=== PATIENT | female | born 1955 | race Caucasian/White ===

== ENCOUNTER 2022-03-21 16:16 | Emergency (ER) | payer MEDICARE ==
[2022-03-21 16:26] VITALS: TEMP 98.1
[2022-03-21] MEDS ORDERED: ONDANSETRON 4 MG/2 ML VIAL IVP STA (16:43)
[2022-03-21] MEDS ORDERED: SODIUM CHLORIDE 0.9% 1,000 ML IV STA (16:43)
[2022-03-21] MEDS ORDERED: KETOROLAC 15 MG/ML 1 ML VIAL IVP STA (16:43)
--- NOTE | 2022-03-21 16:47 | ED ---
General Adult HPI - General Chief complaint: Urogenital Stated complaint: Kidney Stones Time Seen by Provider: 03/21/22 16:29 Source: patient Mode of arrival: ambulatory - History of Present Illness Initial comments: Dictation was produced using [employer] dictation software. please excuse any grammatical, word or spelling errors. Chief Complaint: 67-year-old female presents to the emergency Department with right flank pain History of Present Illness: 67-year-old feel she presents emergency Department with right-sided flank pain. She has a history of kidney stones. Patient states her symptoms have been ongoing for the last 3 days. Patient states that she has had ureteral stents placed in the past. Patient states that her symptoms are colicky nature bradycardia down to the groin area. She does report pelvic fullness. She doesn't report accompanying nausea. Patient states that her symptoms are similar to kidney stones in the past. She has not had a computed tomography scan and several years. Denies any fevers. She noticed that there was significant hematuria over the last 48 hours. The ROS documented in this emergency department record has been reviewed and confirmed by me. Those systems with pertinent positive or negative responses have been documented in the HPI. All other systems are other negative and/or noncontributory. PHYSICAL EXAM: General Impression: Alert and oriented x3, acute distress secondary to pain HEENT: Normocephalic atraumatic, extra-ocular movements intact, pupils equal and reactive to light bilaterally, mucous membranes moist. Cardiovascular: Heart regular rate and rhythm Chest: Able to complete full sentences, no retractions, no tachypnea Abdomen: abdomen soft, non-tender, non-distended, no organomegaly Musculoskeletal: Pulses present and equal in all extremities, no peripheral edema Motor: no focal deficits noted Neurological: CN II-XII grossly intact, no focal motor or sensory deficits noted Skin: Intact with no visualized rashes Psych: Normal affect and mood ED course: 67-year-old with past medical history of kidney stones presents with hematuria and right-sided flank pain. Vital Signs upon arrival are within acceptable limits. Nursing notes and chart review was performed Laboratory evaluation obtained. CBC, metabolic panel is unremarkable. Urinalysis shows 18 red blood cells and 9 white blood cells. Computed tomography scan abdomen and pelvis without contrast showed mild rectosigmoid colitis. No evidence of right renal stone or obstruction. Patient observed in emergency department for approximately 2 hours. Reevaluate bedside at 6:20 PM 5 be stable medical condition. This points unclear what is causing patient's symptoms however she does not have any high-risk features. On reevaluation she is well-appearing. Patient discharged advised to follow-up with primary care doctor. Was pt. sent in by a medical professional or institution (TERRY Palumbo, RAILWAY PATROL OFFICER, urgent care, hospital, or retirement...) When possible be specific @ -No Did you speak to anyone other than the patient for history (EMS, parent, family, police, friend...)? What history was obtained from this source @ -No Did you review nursing and triage notes (agree or disagree)? Why? @ -I reviewed and agree with nursing and triage notes Were old charts reviewed (outside hosp., previous admission, EMS record, old EKG, old radiological studies, urgent care reports/EKG's, retirement records)? Report findings @ -No old charts were reviewed Differential Diagnosis (chest pain, altered mental status, abdominal pain women, abdominal pain men, vaginal bleeding, weakness, fever, dyspnea, syncope, headache, dizziness, GI bleed, back pain, seizure, CVA, palpatations, mental health)? @ -Differential Abdominal Pain Women: Appendicitis, Cholecystitis, diverticulosis, ischemic bowel, pancreatitis, hepatitis, UTI, gastroenteritis, AAA, incarcerated hernia, bowel obstruction, constipation, inflammatory bowel, hepatitis, peptic ulcer disease, splenic infarction, perforated viscus, vulvitis, ovarian torsion, PID, kidney stone, placenta abruption, this is not meant to be an all-inclusive list EKG interpreted by me (3pts min.). @ -As above X-rays interpreted by me (1pt min.). @ -None done CT interpreted by me (1pt min.). @ -See above U/S interpreted by me (1pt. min.). @ -None done What testing was considered but not performed or refused? (CT, X-rays, U/S, labs)? Why? @ -None What meds were considered but not given or refused? Why? @ -None Did you discuss the management of the patient with other professionals (professionals i.e. TERRY Palumbo, RAILWAY PATROL OFFICER, lab, RT, psych nurse, social science instructor, wire stretcher, teacher, ground defence officer, home health care case manager)? Give summary @ -no Was smoking cessation discussed for >3mins.? @ -No Was critical care preformed (if so, how long)? @ -No Were there social determinants of health that impacted care today? How? (Homelessness, low income, unemployed, alcoholism, drug addiction, transportation, low edu. Level, literacy, decrease access to med. care, mcc, rehab)? @ -No Was there de-escalation of care discussed even if they declined (Discuss DNR or withdrawal of care, Hospice)? DNR status @ -No What co-morbidities impacted this encounter? (DM, HTN, Smoking, COPD, CAD, Cancer, CVA, ARF, Chemo, Hep., AIDS, mental health diagnosis, sleep apnea, morbid obesity)? @ -None Was patient admitted / discharged? Hospital course, mention meds given and route, prescriptions, significant lab abnormalities, going to OR and other pertinent info. @ -See above Undiagnosed new problem with uncertain prognosis? @ -No Drug Therapy requiring intensive monitoring for toxicity (Heparin, Nitro, Insulin, Cardizem)? @ -No Were any procedures done? @ -No Diagnosis/symptom? @ -Abdominal pain, no obvious source Acute, or Chronic, or Acute on Chronic? @ -default Uncomplicated (without systemic symptoms) or Complicated (systemic symptoms)? @ -Uncomplicated Side effects of treatment? @ -No Exacerbation, Progression, or Severe Exacerbation? @ -No Poses a threat to life or bodily function? How? (Chest pain, [place], DC, pneumonia, PE, COPD, DKA, ARF, appy, cholecystitis, CVA, Diverticulitis, Homicidal, Suicidal, threat to staff... and all critical care pts) @ -No - Related Data Allergies Allergy/AdvReac Type Severity Reaction Status Date / Time adhesive tape Allergy Rash/Hives Verified 03/21/22 16:27 amoxicillin Allergy Anaphylaxis Verified 03/21/22 16:27 Iodinated Contrast Media Allergy Anaphylaxis Verified 03/21/22 16:27 Penicillins Allergy Anaphylaxis Verified 03/21/22 16:27 tetrabenazine Allergy Rash/Hives Verified 03/21/22 16:27 Review of Systems ROS Statement: Those systems with pertinent positive or pertinent negative responses have been documented in the HPI. ROS Other: All systems not noted in ROS Statement are negative. 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 History of Any Multi-Drug Resistant Organisms: None Reported Past Surgical History: Orthopedic Surgery Past Psychological History: Depression Past Alcohol Use History: None Reported Past Drug Use History: Marijuana Course Vital Signs 03/21/22 03/21/22 03/21/22 16:21 17:09 17:41 Temperature 98.1 F Pulse Rate 74 79 74 Respiratory 16 18 18 Rate Blood Pressure 151/87 156/73 156/74 O2 Sat by Pulse 97 97 98 Oximetry Medical Decision Making - Lab Data Result diagrams: 03/21/22 17:00 03/21/22 17:00 Lab Results 03/21/22 03/21/22 03/21/22 Range/Units 17:00 17:00 17:08 WBC 5.8 (3.8-10.6) k/uL RBC 4.60 (3.80-5.40) m/uL Hgb 13.7 (11.4-16.0) gm/dL Hct 40.5 (34.0-46.0) % MCV 88.0 (80.0-100.0) fL MCH 29.9 (25.0-35.0) pg MCHC 34.0 (31.0-37.0) g/dL RDW 14.0 (11.5-15.5) % Plt Count 177 (150-450) k/uL MPV 7.0 Neutrophils % 61 % Lymphocytes % 28 % Monocytes % 5 % Eosinophils % 6 % Basophils % 0 % Neutrophils # 3.5 (1.3-7.7) k/uL Lymphocytes # 1.6 (1.0-4.8) k/uL Monocytes # 0.3 (0-1.0) k/uL Eosinophils # 0.3 (0-0.7) k/uL Basophils # 0.0 (0-0.2) k/uL Sodium 138 (137-145) mmol/L Potassium 3.8 (3.5-5.1) mmol/L Chloride 106 (98-107) mmol/L Carbon Dioxide 29 (22-30) mmol/L Anion Gap 3 mmol/L BUN 10 (7-17) mg/dL Creatinine 0.64 (0.52-1.04) mg/dL Est GFR (CKD-EPI)AfAm >90 (>60 ml/min/1.73 sqM) Est GFR (CKD-EPI)NonAf >90 (>60 ml/min/1.73 sqM) Glucose 139 H (74-99) mg/dL Calcium 8.3 L (8.4-10.2) mg/dL Urine Color Yellow Urine Appearance Cloudy H (Clear) Urine pH 5.5 (5.0-8.0) Ur Specific [place] 1.023 (1.001-1.035) Urine Protein Trace H (Negative) Urine Glucose (UA) Negative (Negative) Urine Ketones Negative (Negative) Urine Blood Large H (Negative) Urine Nitrite Negative (Negative) Urine Bilirubin Negative (Negative) Urine Urobilinogen 2.0 (<2.0) mg/dL Ur Leukocyte Esterase Small H (Negative) Urine RBC 18 H (0-5) /hpf Urine WBC 9 H (0-5) /hpf Ur Squamous Epith Cells 5 H (0-4) /hpf Hyaline Casts 1 (0-2) /lpf Urine Mucus Few H (None) /hpf Disposition Clinical Impression: Abdominal pain Disposition: HOME SELF-CARE Condition: Good Instructions (If sedation given, give patient instructions): Abdominal Pain (ED) Is patient prescribed a controlled substance at d/c from ED?: No Referrals: None,Stated [Primary Care Provider] - 1-2 days Time of Disposition: 18:21
[2022-03-21 17:06] LABS: Basophils % (A) 0 %; Eosinophils # (A) 0.3 k/uL (0-0.7); Eosinophils % (A) 6 %; HCT 40.5 % (34.0-46.0); HGB 13.7 gm/dL (11.4-16.0); Lymphocytes # (A) 1.6 k/uL (1.0-4.8); Lymphocytes % (A) 28 %; MCH 29.9 pg (25.0-35.0); Monocytes # (A) 0.3 k/uL (0-1.0); Monocytes % (A) 5 %; Neutrophils # (A) 3.5 k/uL (1.3-7.7); Neutrophils % (A) 61 %; Platelet Count 177 k/uL (150-450); WBC 5.8 k/uL (3.8-10.6)
[2022-03-21 17:09] VITALS: RESP 18
[2022-03-21 17:20] LABS: African American GFR (CKD) >90 (>60 ml/min/1.73 sqM); Anion Gap 3 mmol/L; Blood Urea Nitrogen 10 mg/dL (7-17); Calcium 8.3 mg/dL (8.4-10.2); Carbon Dioxide 29 mmol/L (22-30); Chloride 106 mmol/L (98-107); Glucose 139 mg/dL (74-99); Non-African American GFR(CKD) >90 (>60 ml/min/1.73 sqM); Potassium 3.8 mmol/L (3.5-5.1); Sodium 138 mmol/L (137-145)
[2022-03-21 17:31] LABS: Appearance,Urine Cloudy (Clear); Bilirubin,Urine Negative (Negative); Blood,Urine Large (Negative); Color,Urine Yellow; Glucose,Urine (UA) Negative (Negative); Hyaline Casts,Urine 1 /lpf (0-2); Ketones,Urine Negative (Negative); Leukocyte Esterase,Urine Small (Negative); Mucus,Urine Few /hpf; Nitrite,Urine Negative (Negative); PH, Urine 5.5 (5.0-8.0); Protein,Urine Trace (Negative); RBC,Urine 18 /hpf (0-5); Specific Gravity,Urine 1.023 (1.001-1.035); Squamous Epithelial Cell,Urine 5 /hpf (0-4); WBC,Urine 9 /hpf (0-5)
[2022-03-21] MEDS ORDERED: MORPHINE SULFATE 4 MG/ML SYRINGE IV STA (17:31)
[2022-03-21 17:42] VITALS: BP 156/74; PULSE 74
--- NOTE | 2022-03-21 17:54 | CT ---
EXAMINATION TYPE: CT abdomen pelvis wo con DATE OF EXAM: 03/21/2022 COMPARISON: None HISTORY: right flank pain CT DLP: 981.3 mGycm Automated exposure control for dose reduction was used. There is subsegmental atelectasis at the lung bases. Heart size is normal. No pericardial effusion. T here are clips from cholecystectomy. Liver and spleen are intact. There is previous gastric surgery. No evidence of pancreatic mass. There is no adrenal mass. Kidneys of normal size. There are a few left renal calculi that measure up to 1.5 cm. There is no retroperitoneal adenopathy. The ureters are not dilated. Urinary bladder is al most empty. No pelvic mass. No inguinal hernia. No free fluid in the pelvis. There is some mild wall thickening of the sigmoid colon. Appendix appears normal. There is no mesenteric edema. No ascites or free air. No sign of a bowel obstruction. There is normal alignment of the vertebra. No compression fracture. There is posterior fusion surgery at L3-4. The bony pelvis is intact. The hip joints are intact. There is multilevel lumbar laminectom y defect. IMPRESSION: Minimal wall thickening of the rectosigmoid colon could be some mild nonspecific colitis. Normal appe ndix. Multiple nonobstructing left renal calculi. No evidence of right renal stone or obstruction.
== END 2022-03-21 18:34 | disposition home or self-care (01) ==
LOC: EC 16:16
DX: R10.9 Unspecified abdominal pain (principal); N20.0 Calculus of kidney; F12.90 Cannabis use, unspecified, uncomplicated; Z88.0 Allergy status to penicillin; Z91.041 Radiographic dye allergy status; Z91.048 Other nonmedicinal substance allergy status; Z88.8 Allergy status to other drugs, medicaments and biological substances
CPT/HCPCS: 99284 ×2; 96374 ×2; 96375 ×3; 96361 ×2; 36415; 80048; 85025; 81001; 74176; J2270; J2405; J1885

== ENCOUNTER → 2022-05-25 | Outpatient (CLI) | payer MEDICARE ==
--- NOTE | 2022-05-25 15:24 | MR ---
EXAMINATION TYPE: MR shoulder LT wo con DATE OF EXAM: 05/25/2022 COMPARISON: Left shoulder x-ray April 24, 2022 HISTORY: Left shoulder pain, S/P fall 1 month ago. TECHNIQUE: Multiplanar, multisequence imaging of the left shoulder is performed without contrast. FINDINGS: Rotator Cuff: Some increased signal and surrounding fluid of the supraspinatus and infraspinatus tend ons. Some fluid signal along the bursal surface. No full-thickness retracted tear. Rotator cuff muscl e bulk is preserved. Increased signal is more prominent in the subscapularis tendon with surrounding fluid Acromioclavicular Joint: Mild to moderate narrowing at the acromioclavicular joint. Type II downslopi ng acromion on MRI suggestive of underlying impingement sagittal image 9 and coronal image 10 Glenohumeral Joint: Significant narrowing with bony exostosis medially from the humeral head. Moderat e-sized joint effusion. Labrum: Increased signal superior labrum consistent with degenerative tearing. Biceps Tendon: The long head of biceps is in normal location within bicipital groove. Bone marrow signal: Subchondral cystic change anterior humeral head is present. Other: No additional significant abnormality is appreciated. IMPRESSION: 1. Fairly moderate to severe glenohumeral joint arthropathy is seen as detailed above. 2. Tendinosis of the rotator cuff tendons most prominent involving the subscapularis tendon. Type II downsloping acromion with suggestion of underlying impingement. Correlate clinically.
== END | disposition home or self-care (01) ==
LOC: RADMRIMAIN 07:19
PROVIDERS: ATTEND Family Medicine
DX: M19.012 Primary osteoarthritis, left shoulder (principal); M24.812 Other specific joint derangements of left shoulder, not elsewhere classified; M67.814 Other specified disorders of tendon, left shoulder

== ENCOUNTER → 2022-08-06 | Outpatient (CLI) | payer MEDICARE ==
--- NOTE | 2022-08-07 12:38 | CA ---
Transthoracic Echo Report Name: Maryellen Hernandez Age: 67 Gender: F : 1955 Exam Date: 08/06/2022 10:01 Exam Location: [facility] Ht (in): 67 Wt (lb): 191 Ordering Physician: Javon Wallace MD Attending/Referring Phys: [id number], Rodrigo Art Appraiser Josie Hendrickson, AMAURY Procedure CPT: Indications: I25.2 OLD MYOCARDIAL INFARCTION Abn EKG Cardiac Hx: Technical Quality: Good Contrast 1: Total Dose (mL): Contrast 2: Total Dose (mL): MEASUREMENTS (Male / Female) Normal Values 2D ECHO LV Diastolic Diameter PLAX 4.4 cm 4.2 - 5.9 / 3.9 - 5.3 cm LV Systolic Diameter PLAX 2.9 cm IVS Diastolic Thickness 1.2 cm 0.6 - 1.0 / 0.6 - 0.9 cm LVPW Diastolic Thickness 1.1 cm 0.6 - 1.0 / 0.6 - 0.9 cm LV Relative Wall Thickness 0.5 RV Internal Dim ED PLAX 2.8 cm LA Systolic Diameter LX 3.9 cm 3.0 - 4.0 / 2.7 - 3.8 cm LV Diastolic Volume MOD BP 52.0 cm??? 67 - 155 / 56 - 104 cm??? LV Systolic Volume MOD BP 17.7 cm??? 22 - 58 / 19 - 49 cm??? LV Ejection Fraction MOD BP 66.0 % >= 55 % LV Diastolic Volume MOD 4C 46.6 cm??? LV Systolic Volume MOD 4C 16.1 cm??? LV Ejection Fraction MOD 4C 65.4 % LV Diastolic Length 4C 6.6 cm LV Systolic Length 4C 5.5 cm LV Diastolic Volume MOD 2C 58.4 cm??? LV Systolic Volume MOD 2C 19.2 cm??? LV Ejection Fraction MOD 2C 67.1 % LV Diastolic Length 2C 6.7 cm LV Systolic Length 2C 5.2 cm LA Volume 50.0 cm??? 18 - 58 / 22 - 52 cm??? M-MODE Aortic Root Diameter MM 3.0 cm MV E Point Septal Separation 0.4 cm AV Cusp Separation MM 1.9 cm DOPPLER AV Peak Velocity 147.7 cm/s AV Peak Gradient 8.7 mmHg AI Peak Velocity 267.7 cm/s AI Peak Gradient 28.7 mmHg AI Pressure Half Time 902.6 ms MV Area PHT 2.4 cm??? Mitral E Point Velocity 69.2 cm/s Mitral A Point Velocity 97.0 cm/s Mitral E to A Ratio 0.7 MV Deceleration Time 321.3 ms MV E' Velocity 9.9 cm/s Mitral E to MV E' Ratio 7.0 TR Peak Velocity 278.6 cm/s TR Peak Gradient 31.0 mmHg Right Ventricular Systolic Press 36.0 mmHg FINDINGS Left Ventricle Left ventricular ejection fraction is estimated at 55-60 %. Left ventricular cavity size normal. Mildly increased septal wall thickness. Mildly increased posterior wall thickness. Right Ventricle Normal right ventricular size and function. Mild pulmonary hypertension. Right Atrium Normal right atrial size. Left Atrium Mildly increased left atrial diameter. Mitral Valve Structurally normal mitral valve. Trace mitral regurgitation. Aortic Valve Trileaflet aortic valve. Mild aortic regurgitation. Tricuspid Valve Structurally normal tricuspid valve. Mild tricuspid regurgitation. Pulmonic Valve Structurally normal pulmonic valve. No pulmonic regurgitation. Pericardium Normal pericardium. No pericardial effusion. Aorta Normal size aortic root and proximal ascending aorta. CONCLUSIONS Normal LV systolic function Mild aortic insufficiency Previewed by: Dr. Luciano Leonard MD (Electronically Signed) Final Date: 07 August 2022 12:38
--- NOTE | 2022-08-07 13:34 | CA ---
Stress Echo Report Maryellen Hernandez Age: 67 Gender: F : 1955 Exam Date: 08/06/2022 10:30 Exam Location: [facility] Ht (in): 67 Wt (lb): 191 Ordering Physician: Javon Wallace MD Referring Physician: Rodrigo JOHNSON Yoker Machine Operator: Yanique Zheng RDCS Technologist Procedure CPT: Indication: I25.2 OLD MYOCARDIAL INFARCTION Abn EKG ICD-9 Codes: Rhythm: Patient History: Cardiac Medications: EFFEXOR,,,,,, ALIVE,,,,, Medications in past 24 hours: Contrast: Stress Results Protocol: Rafael Total dose(mL): Exercise Duration (min:sec): 3:[address] Depression (mm): Angina Score: [place] Score: METS: 5.0 Resting HR: 88 Resting BP: 170 / 70 Peak HR: 152 Peak BP: 256 / 65 Max Predicted HR: 154 99 % Max Predicted HR Target HR: 131 Double Product: [id number] Stress Summary: The patient's target heart rate was achieved BP Response: Abnormal increase in BP during/after stress Reason for Termination: MAX EXERTION/TARGET HR Cardiac Symptoms: NO SYMPTOMS ECG Analysis Resting ECG: Stress ECG: Arrhythmia: Echo Analysis Resting Echo: Peak Echo Analysis: MEASUREMENTS (Male/Female) Normal Values CONCLUSIONS Average exercise tolerance Normal EKG and echo in the response to exercise Dr. Luciano Leonard MD (Electronically Signed) Final Date: 07 August 2022 13:33
== END | disposition home or self-care (01) ==
LOC: RADNMMAIN 09:55
PROVIDERS: ATTEND Family Medicine
DX: I35.1 Nonrheumatic aortic (valve) insufficiency (principal); I25.2 Old myocardial infarction
CPT/HCPCS: 93306; 93351

== ENCOUNTER 2023-03-05 07:38 | Emergency (ER) | payer MEDICARE ==
[2023-03-05] MEDS ORDERED: SODIUM CHLORIDE 0.9% 1,000 ML IV STA (08:08)
[2023-03-05] MEDS ORDERED: ONDANSETRON 4 MG/2 ML VIAL IVP STA (08:08)
[2023-03-05] MEDS ORDERED: HYDROmorphone 1 MG/ML 1 ML SYRINGE IVP STA (08:09)
--- NOTE | 2023-03-05 08:10 | ED ---
General Adult HPI - General Chief complaint: Abdominal Pain Stated complaint: kidney pain Time Seen by Provider: 03/05/23 07:44 Source: patient, RN notes reviewed, old records reviewed Mode of arrival: wheelchair Limitations: no limitations - History of Present Illness Initial comments: 68 yo female presenting with right-sided flank pain over the past 4 days. This is radiates to the right groin. History of renal stones in the past. Patient has had multiple episodes of vomiting associated with the pain. No fever. No dysuria. No hematuria. - Related Data Home Medications Medication Instructions Recorded Confirmed Ascorbic Acid [Vitamin C] 500 mg PO DAILY 03/21/22 03/21/22 Venlafaxine HCl ER [Effexor XR] 150 mg PO BID 03/21/22 03/21/22 Zinc Gluconate [Zinc] 50 mg PO DAILY 03/21/22 03/21/22 traZODone HCL 100 - 200 mg PO HS PRN 03/21/22 03/21/22 Allergies Allergy/AdvReac Type Severity Reaction Status Date / Time adhesive tape Allergy Rash/Hives Verified 03/05/23 07:49 amoxicillin Allergy Anaphylaxis Verified 03/05/23 07:49 Iodinated Contrast Media Allergy Anaphylaxis Verified 03/05/23 07:49 Penicillins Allergy Anaphylaxis Verified 03/05/23 07:49 phenobarbital Allergy Rash/Hives Verified 03/05/23 07:49 phenytoin [From Dilantin] Allergy Rash/Hives Verified 03/05/23 07:49 tetrabenazine Allergy Rash/Hives Verified 03/05/23 07:49 fentanyl AdvReac "Skin Verified 03/05/23 07:49 falls off" Review of Systems ROS Statement: Those systems with pertinent positive or pertinent negative responses have been documented in the HPI. ROS Other: All systems not noted in ROS Statement are negative. 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 Absent: tenderness, meningismus Respiratory exam: Present: normal lung sounds bilaterally. Absent: respiratory distress, wheezes Cardiovascular Exam: Present: regular rate, normal rhythm GI/Abdominal exam: Present: soft. Absent: distended Extremities exam: Present: normal inspection Back exam: Present: CVA tenderness (R) Neurological exam: Present: alert, oriented X3 Psychiatric exam: Present: normal affect, normal mood Skin exam: Present: warm, dry, intact Course Vital Signs 03/05/23 03/05/23 07:47 09:48 Temperature 98.5 F 97.8 F Pulse Rate 65 61 Respiratory 16 18 Rate Blood Pressure 141/62 151/74 O2 Sat by Pulse 98 96 Oximetry Medical Decision Making - Medical Decision Making Was pt. sent in by a medical professional or institution (, PA, CHAIN TENDER, urgent care, hospital, or usp...) When possible be specific @ -No Did you speak to anyone other than the patient for history (EMS, parent, family, police, friend...)? What history was obtained from this source @ -No Did you review nursing and triage notes (agree or disagree)? Why? @ -I reviewed and agree with nursing and triage notes Were old charts reviewed (outside hosp., previous admission, EMS record, old EKG, old radiological studies, urgent care reports/EKG's, usp records)? Report findings @ -No old charts were reviewed Differential Diagnosis (chest pain, altered mental status, abdominal pain women, abdominal pain men, vaginal bleeding, weakness, fever, dyspnea, syncope, headache, dizziness, GI bleed, back pain, seizure, CVA, palpatations, mental health, musculoskeletal)? @ -[Differential Abdominal Pain Women: Appendicitis, Cholecystitis, diverticulosis, ischemic bowel, pancreatitis, hep atitis, UTI, gastroenteritis, AAA, incarcerated hernia, bowel obstruction, constipation, inflammatory bowel, hepatitis, peptic ulcer disease, splenic infarction, perforated viscus, vulvitis, ovarian torsion, PID, kidney stone, placenta abruption, this is not meant to be an all-inclusive list EKG interpreted by me (3pts min.). @ -As above X-rays interpreted by me (1pt min.). @ -None done CT interpreted by me (1pt min.). @CT negative for obstructing renal calculi, no acute findings U/S interpreted by me (1pt. min.). @ -None done What testing was considered but not performed or refused? (CT, X-rays, U/S, labs)? Why? @ -None What meds were considered but not given or refused? Why? @ -None Did you discuss the management of the patient with other professionals (professionals i.e. , PA, CHAIN TENDER, lab, RT, psych nurse, certified social workers in health care, volunteer assistant, teacher, retail loan officer, bilingual case manager)? Give summary @ -No Was smoking cessation discussed for >3mins.? @ -No Was critical care preformed (if so, how long)? @ -No Were there social determinants of health that impacted care today? How? (Homelessness, low income, unemployed, alcoholism, drug addiction, transportation, low edu. Level, literacy, decrease access to med. care, penitentiary, rehab)? @ -No Was there de-escalation of care discussed even if they declined (Discuss DNR or withdrawal of care, Hospice)? DNR status @ -No What co-morbidities impacted this encounter? (DM, HTN, Smoking, COPD, CAD, Cancer, CVA, ARF, Chemo, Hep., AIDS, mental health diagnosis, sleep apnea, morbid obesity)? @ -[History of kidney stones. Was patient admitted / discharged? Hospital course, mention meds given and route, prescriptions, significant lab abnormalities, going to OR and other pertinent info. @ -68-year-old female with right flank pain over the past 4 days. Normal CBC, normal CMP, negative urinalysis, no significant hematuria. CT negative for obstructing stone or acute process. Patient does have multiple nonobstructing stones in the left kidney. Patient reevaluated, feeling better. She will follow with her primary care provider. Troponin was discussed. Undiagnosed new problem with uncertain prognosis? @ -No Drug Therapy requiring intensive monitoring for toxicity (Heparin, Nitro, Insulin, Cardizem)? @ -No Were any procedures done? @ -No Diagnosis/symptom? @ -[Right flank pain Acute, or Chronic, or Acute on Chronic? @ -[Acute Uncomplicated (without systemic symptoms) or Complicated (systemic symptoms)? @ Side effects of treatment? @ -No Exacerbation, Progression, or Severe Exacerbation? @ -No Poses a threat to life or bodily function? How? (Chest pain, [place], [place], pneumonia, PE, COPD, DKA, ARF, appy, cholecystitis, CVA, Diverticulitis, Homicidal, Suicidal, threat to staff... and all critical care pts) @ -[Low risk at this time - Lab Data Result diagrams: 03/05/23 08:11 03/05/23 08:11 Lab Results 03/05/23 03/05/23 03/05/23 Range/Units 08:11 08:11 08:11 WBC 7.1 (3.8-10.6) k/uL RBC 4.80 (3.80-5.40) m/uL Hgb 14.3 (11.4-16.0) gm/dL Hct 43.5 (34.0-46.0) % MCV 90.7 (80.0-100.0) fL MCH 29.9 (25.0-35.0) pg MCHC 32.9 (31.0-37.0) g/dL RDW 13.1 (11.5-15.5) % Plt Count 201 (150-450) k/uL MPV 6.8 Neutrophils % 59 % Lymphocytes % 30 % Monocytes % 5 % Eosinophils % 4 % Basophils % 0 % Neutrophils # 4.2 (1.3-7.7) k/uL Lymphocytes # 2.2 (1.0-4.8) k/uL Monocytes # 0.3 (0-1.0) k/uL Eosinophils # 0.3 (0-0.7) k/uL Basophils # 0.0 (0-0.2) k/uL Sodium 139 (137-145) mmol/L Potassium 4.3 (3.5-5.1) mmol/L Chloride 101 (98-107) mmol/L Carbon Dioxide 28 (22-30) mmol/L Anion Gap 10 mmol/L BUN 18 H (7-17) mg/dL Creatinine 0.69 (0.52-1.04) mg/dL Est GFR (CKD-EPI)AfAm >90 (>60 ml/min/1.73 sqM) Est GFR (CKD-EPI)NonAf >90 (>60 ml/min/1.73 sqM) Glucose 107 H (74-99) mg/dL Calcium 9.3 (8.4-10.2) mg/dL Total Bilirubin 0.5 (0.2-1.3) mg/dL AST 27 (14-36) U/L ALT 15 (4-34) U/L Alkaline Phosphatase 88 (38-126) U/L Total Protein 7.4 (6.3-8.2) g/dL Albumin 4.2 (3.5-5.0) g/dL Lipase 248 (23-300) U/L Urine Color Yellow Urine Appearance Clear (Clear) Urine pH 5.5 (5.0-8.0) Ur Specific [address] 1.021 (1.001-1.035) Urine Protein Negative (Negative) Urine Glucose (UA) Negative (Negative) Urine Ketones Negative (Negative) Urine Blood Small H (Negative) Urine Nitrite Negative (Negative) Urine Bilirubin Negative (Negative) Urine Urobilinogen <2.0 (<2.0) mg/dL Ur Leukocyte Esterase Moderate H (Negative) Urine RBC 1 (0-5) /hpf Urine WBC 13 H (0-5) /hpf Ur Squamous Epith Cells 5 H (0-4) /hpf Urine Bacteria Many H (None) /hpf Urine Mucus Occasional H (None) /hpf Disposition Clinical Impression: Abdominal pain Disposition: HOME SELF-CARE Condition: Good Instructions (If sedation given, give patient instructions): Abdominal Pain (ED) Is patient prescribed a controlled substance at d/c from ED?: No Referrals: Javon Wallace MD [Primary Care Provider] - 1-2 days Time of Disposition: 10:18
[2023-03-05 08:21] LABS: Basophils % (A) 0 %; Eosinophils # (A) 0.3 k/uL (0-0.7); Eosinophils % (A) 4 %; HCT 43.5 % (34.0-46.0); HGB 14.3 gm/dL (11.4-16.0); Lymphocytes # (A) 2.2 k/uL (1.0-4.8); Lymphocytes % (A) 30 %; MCH 29.9 pg (25.0-35.0); MCHC 32.9 g/dL (31.0-37.0); MCV 90.7 fL (80.0-100.0); Mean Platelet Volume 6.8; Monocytes # (A) 0.3 k/uL (0-1.0); Monocytes % (A) 5 %; Neutrophils # (A) 4.2 k/uL (1.3-7.7); Neutrophils % (A) 59 %; Platelet Count 201 k/uL (150-450); RDW 13.1 % (11.5-15.5); WBC 7.1 k/uL (3.8-10.6)
[2023-03-05 08:29] LABS: ALT 15 U/L (4-34); AST 27 U/L (14-36); African American GFR (CKD) >90 (>60 ml/min/1.73 sqM); Albumin 4.2 g/dL (3.5-5.0); Alkaline Phosphatase 88 U/L (38-126); Anion Gap 10 mmol/L; Blood Urea Nitrogen 18 mg/dL (7-17); Calcium 9.3 mg/dL (8.4-10.2); Carbon Dioxide 28 mmol/L (22-30); Chloride 101 mmol/L (98-107); Glucose 107 mg/dL (74-99); Lipase 248 U/L (23-300); Non-African American GFR(CKD) >90 (>60 ml/min/1.73 sqM); Potassium 4.3 mmol/L (3.5-5.1); Sodium 139 mmol/L (137-145); Total Bilirubin 0.5 mg/dL (0.2-1.3); Total Protein 7.4 g/dL (6.3-8.2)
[2023-03-05 08:44] LABS: Appearance,Urine Clear (Clear); Bacteria,Urine Many /hpf; Bilirubin,Urine Negative (Negative); Blood,Urine Small (Negative); Color,Urine Yellow; Glucose,Urine (UA) Negative (Negative); Ketones,Urine Negative (Negative); Leukocyte Esterase,Urine Moderate (Negative); Mucus,Urine Occasional /hpf; Nitrite,Urine Negative (Negative); PH, Urine 5.5 (5.0-8.0); Protein,Urine Negative (Negative); RBC,Urine 1 /hpf (0-5); Specific Gravity,Urine 1.021 (1.001-1.035); Squamous Epithelial Cell,Urine 5 /hpf (0-4); Urobilinogen,Urine <2.0 mg/dL (<2.0); WBC,Urine 13 /hpf (0-5)
--- NOTE | 2023-03-05 09:44 | CT ---
EXAMINATION TYPE: CT abdomen pelvis wo con DATE OF EXAM: 03/05/2023 HISTORY: Right flank pain. History of kidney stones. CT DLP: 652.9 mGycm. Automated Exposure Control for Dose Reduction was Utilized. TECHNIQUE: CT scan of the abdomen and pelvis is performed without oral or IV contrast. COMPARISON: Prior CT March 21, 2022 FINDINGS: Within the limitations of a non-contrast study, the following observations are made. Exam suboptimal as entire pelvis is not included. LUNG BASES: No significant abnormality is appreciated. LIVER/GB: Cholecystectomy clips are redemonstrated.. PANCREAS: No significant abnormality is seen. SPLEEN: No significant abnormality is seen. ADRENALS: No significant abnormality is seen. KIDNEYS: No right-sided renal calculi or hydronephrosis. Approximately 4-5 left-sided renal calculi c urrent study including dominant 14 mm calculus coronal image 52. No left-sided hydronephrosis. The bl adder is not included in field of view BOWEL:. Appendix within normal limits from the base of cecum. GENITAL ORGANS: Not included in field of view. LYMPH NODES: No greater than 1cm abdominal lymph nodes are appreciated. OSSEOUS STRUCTURES: Posterior decompression changes in the mid to lower lumbar spine are redemonstrat ed. Alignment is stable and straightened. Posterior fusion hardware and artificial disc material L3-L 4 level redemonstrated. Vacuum disc phenomenon with mild to moderate disc space narrowing and severe anterior spurring L2-L3 level redemonstrated. Moderate disc space narrowing and spurring L1-L2 level redemonstrated. OTHER: Persistent small fat-containing left periumbilical hernia. IMPRESSION: Interval progression in nonobstructing left-sided nephrolithiasis. No right-sided renal c alculi. No hydronephrosis or obstructing ureteral calculi seen bilaterally. Incomplete evaluation of the pelvis noted.
[2023-03-05 09:55] VITALS: BP 151/74; PULSE 61; RESP 18; TEMP 97.8
== END 2023-03-05 10:32 | disposition home or self-care (01) ==
LOC: EC 07:38
DX: N20.0 Calculus of kidney (principal); F32.A Depression, unspecified; F12.90 Cannabis use, unspecified, uncomplicated; Z79.899 Other long term (current) drug therapy; Z88.0 Allergy status to penicillin; Z91.041 Radiographic dye allergy status; Z91.09 Other allergy status, other than to drugs and biological substances; Z88.8 Allergy status to other drugs, medicaments and biological substances; Z88.5 Allergy status to narcotic agent
CPT/HCPCS: 36415; 80053; 83690; 85025; 81001; 74176; 99284; 96374; 96375; 96361; J2405; J1170

== ENCOUNTER 2023-03-08 11:34 | Emergency (ER) | payer MEDICARE ==
--- NOTE | 2023-03-08 12:14 | ED ---
Abdominal Pain HPI - General Source: patient, RN notes reviewed Mode of arrival: ambulatory Limitations: no limitations - History of Present Illness MD Complaint: flank pain <Nuria Ludwig - Last Filed: 03/08/23 12:09> <Papa Michaels - Last Filed: 03/08/23 17:45> - General Chief Complaint: Abdominal Pain Stated Complaint: kidney stones Time Seen by Provider: 03/08/23 12:00 - History of Present Illness Initial Comments: This is a 68 year old female who presents to the emergency department for right flank pain. Patient was evaluated here on 03/05 and states that she was diagnosed with kidney stones. She continues to be in severe pain and states that she cannot manage this at home. She called the urologist who said that they could not do anything in a timely manor. (Nuria Ludwig) This is a 68-year-old female who presented emergency Department complaining of left-sided flank pain. Patient states that is been ongoing for 2 weeks. Gurwinder t states she was in the ER the other day and they noted that she had a 14 mm stone in the left kidney and she believes that's where her pain is coming from. Patient states she does have pain on both sides of her abdomen. Patient does complain of pain up into her kidney area as well. Patient also has some pain in the suprapubic region. Patient states she's unable to urinate a lot every time she goes only goes a little bit. Patient denies any fever chills per patient denies any diarrhea patient denies any nausea vomiting. Patient states the pain is unbearable at this point (Papa Michaels) - Related Data Home Medications Medication Instructions Recorded Confirmed Venlafaxine HCl ER [Effexor XR] 300 mg PO DAILY 03/21/22 03/08/23 HYDROcodone/APAP 5-325MG [[place] 1 tab PO DIRECTED PRN 03/08/23 03/08/23 5-325] Ondansetron Odt [Zofran Odt] 4 mg PO DIRECTED PRN 03/08/23 03/08/23 Tamsulosin [Flomax] 0.4 mg PO DIRECTED 03/08/23 03/08/23 Allergies Allergy/AdvReac Type Severity Reaction Status Date / Time adhesive tape Allergy Rash/Hives Verified 03/08/23 13:30 amoxicillin Allergy Anaphylaxis Verified 03/08/23 13:30 Iodinated Contrast Media Allergy Anaphylaxis Verified 03/08/23 13:30 Penicillins Allergy Anaphylaxis Verified 03/08/23 13:30 phenobarbital Allergy Rash/Hives Verified 03/08/23 13:30 phenytoin [From Dilantin] Allergy Rash/Hives Verified 03/08/23 13:30 tetrabenazine Allergy Rash/Hives Verified 03/08/23 13:30 fentanyl AdvReac "Skin Verified 03/08/23 13:30 falls off" Review of Systems ROS Other: All systems not noted in ROS Statement are negative. <Nuria Ludwig - Last Filed: 03/08/23 12:09> ROS Other: All systems not noted in ROS Statement are negative. <Papa Michaels - Last Filed: 03/08/23 17:45> ROS Statement: Those systems with pertinent positive or pertinent negative responses have been documented in the HPI. 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 Head: Normocephalic, atraumatic Eyes: PERRLA, EOMI ENT: Airway patent Chest: Nonlabored breathing Skin: No visual rash, normal skin tone Neuro: Alert and oriented 3 Musculoskeletal: No gross abnormalities (Nuria Ludwig) GENERAL: Patient is well-developed and well-nourished. Patient is nontoxic and well- hydrated and is in mild distress. ENT: Neck is soft and supple. No significant lymphadenopathy is noted. Oropharynx is clear. Moist mucous membranes. Neck has full range of motion without eliciting any pain. EYES: The sclera were anicteric and conjunctiva were pink and moist. Extraocular movements were intact and pupils were equal round and reactive to light. Eyelids were unremarkable. PULMONARY: Unlabored respirations. Good breath sounds bilaterally. No audible rales rhonchi or wheezing was noted. CARDIOVASCULAR: There is a regular rate and rhythm without any murmurs gallops or rubs. ABDOMEN: Soft and nontender with normal bowel sounds. SKIN: Skin is clear with no lesions or rashes and otherwise unremarkable. NEUROLOGIC: Patient is alert and oriented 3 cranial nerves II through XII are grossly intact motor and sensory are also intact MUSCULOSKELETAL: Normal extremities with adequate strength and full range of motion. No lower extremity swelling or edema. No calf tenderness. LYMPHATICS: No significant lymphadenopathy is noted PSYCHIATRIC: Normal psychiatric evaluation. (Papa Michaels) Course Vital Signs 03/08/23 03/08/23 03/08/23 12:01 13:44 15:23 Temperature 98 F Pulse Rate 76 77 63 Respiratory 16 18 16 Rate Blood Pressure 155/81 181/102 180/89 O2 Sat by Pulse 97 96 99 Oximetry 03/08/23 16:46 Temperature Pulse Rate 74 Respiratory 18 Rate Blood Pressure 180/95 O2 Sat by Pulse 97 Oximetry Medical Decision Making <Nuria Ludwig - Last Filed: 03/08/23 12:09> - Lab Data Result diagrams: 03/08/23 13:36 03/08/23 13:36 <Papa Michaels - Last Filed: 03/08/23 17:45> - Medical Decision Making I performed the QuickNote portion of this chart. Signed Nuria Ludwig PA-C. (Nuria Ludwig) Was pt. sent in by a medical professional or institution (TER[facility] Palumbo, MANAGER PRACTICE, urgent care, hospital, or half-way...) When possible be specific @ -No Did you speak to anyone other than the patient for history (EMS, parent, family, police, friend...)? What history was obtained from this source @ -No Did you review nursing and triage notes (agree or disagree)? Why? @ -I reviewed and agree with nursing and triage notes Were old charts reviewed (outside hosp., previous admission, EMS record, old EKG, old radiological studies, urgent care reports/EKG's, half-way records)? Report findings @ -The prior chart some lab work on this patient Differential Diagnosis (chest pain, altered mental status, abdominal pain women, abdominal pain men, vaginal bleeding, weakness, fever, dyspnea, syncope, headache, dizziness, GI bleed, back pain, seizure, CVA, palpatations, mental health, musculoskeletal)? @ -Differential Abdominal Pain Women: Appendicitis, Cholecystitis, diverticulosis, ischemic bowel, pancreatitis, hepatitis, UTI, gastroenteritis, AAA, incarcerated hernia, bowel obstruction, constipation, inflammatory bowel, hepatitis, peptic ulcer disease, splenic infarction, perforated viscus, vulvitis, ovarian torsion, PID, kidney stone, placenta abruption, this is not meant to be an all-inclusive list EKG interpreted by me (3pts min.). @ -As above X-rays interpreted by me (1pt min.). @ -None done CT interpreted by me (1pt min.). @ -CT of the abdomen and pelvis showed no acute abnormality there is a kidney stone in the left kidney but it is not showing any hydronephrosis or hydroureter U/S interpreted by me (1pt. min.). @ -None done What testing was considered but not performed or refused? (CT, X-rays, U/S, labs)? Why? @ -None What meds were considered but not given or refused? Why? @ -None Did you discuss the management of the patient with other professionals (professionals i.e. , PA, MANAGER PRACTICE, lab, RT, psych nurse, social media marketing analyst, ledger poster, teacher, family preservation officer, embedded case manager)? Give summary @ -No Was smoking cessation discussed for >3mins.? @ -No Was critical care preformed (if so, how long)? @ -No Were there social determinants of health that impacted care today? How? (Homelessness, low income, unemployed, alcoholism, drug addiction, tr ansportation, low edu. Level, literacy, decrease access to med. care, alf, rehab)? @ -No Was there de-escalation of care discussed even if they declined (Discuss DNR or withdrawal of care, Hospice)? DNR status @ -No What co-morbidities impacted this encounter? (DM, HTN, Smoking, COPD, CAD, Cancer, CVA, ARF, Chemo, Hep., AIDS, mental health diagnosis, sleep apnea, morbid obesity)? @ -None Was patient admitted / discharged? Hospital course, mention meds given and route, prescriptions, significant lab abnormalities, going to OR and other pertinent info. @ -The patient was given Toradol and Dilaudid for pain and feeling considerably better. Patient's CT showed no acute abnormality and fell no expiration for pain. I went into the room multiple times and she was sleeping when I woke her up she was in no discomfort so at this time she'll follow-up with her primary medical care doctor. Undiagnosed new problem with uncertain prognosis? @ -No Drug Therapy requiring intensive monitoring for toxicity (Heparin, Nitro, Insulin, Cardizem)? @ -No Were any procedures done? @ -No Diagnosis/symptom? @ -Abdominal pain Acute, or Chronic, or Acute on Chronic? @ -Acute Uncomplicated (without systemic symptoms) or Complicated (systemic symptoms)? @ -Complicated Side effects of treatment? @ -No Exacerbation, Progression, or Severe Exacerbation? @ -No Poses a threat to life or bodily function? How? (Chest pain, [place], [place], pneumonia, PE, COPD, DKA, ARF, appy, cholecystitis, CVA, Diverticulitis, Homicidal, Suicidal, threat to staff... and all critical care pts) @ -No (Papa Michaels) - Lab Data Lab Results 03/08/23 03/08/23 03/08/23 Range/Units 13:36 13:36 13:36 WBC 7.0 (3.8-10.6) k/uL RBC 4.74 (3.80-5.40) m/uL Hgb 14.4 (11.4-16.0) gm/dL Hct 42.9 (34.0-46.0) % MCV 90.4 (80.0-100.0) fL MCH 30.3 (25.0-35.0) pg MCHC 33.5 (31.0-37.0) g/dL RDW 13.4 (11.5-15.5) % Plt Count 212 (150-450) k/uL MPV 6.9 Neutrophils % 60 % Lymphocytes % 29 % Monocytes % 6 % Eosinophils % 3 % Basophils % 0 % Neutrophils # 4.2 (1.3-7.7) k/uL Lymphocytes # 2.0 (1.0-4.8) k/uL Monocytes # 0.4 (0-1.0) k/uL Eosinophils # 0.2 (0-0.7) k/uL Basophils # 0.0 (0-0.2) k/uL Sodium 140 (137-145) mmol/L Potassium 3.7 (3.5-5.1) mmol/L Chloride 103 (98-107) mmol/L Carbon Dioxide 27 (22-30) mmol/L Anion Gap 10 mmol/L BUN 20 H (7-17) mg/dL Creatinine 0.70 (0.52-1.04) mg/dL Est GFR (CKD-EPI)AfAm >90 (>60 ml/min/1.73 sqM) Est GFR (CKD-EPI)NonAf 90 (>60 ml/min/1.73 sqM) Glucose 91 (74-99) mg/dL Plasma Lactic Acid [place] 1.2 (0.7-2.0) mmol/L Calcium 9.5 (8.4-10.2) mg/dL Total Bilirubin 0.8 (0.2-1.3) mg/dL AST 29 (14-36) U/L ALT 17 (4-34) U/L Alkaline Phosphatase 91 (38-126) U/L Total Protein 7.6 (6.3-8.2) g/dL Albumin 4.1 (3.5-5.0) g/dL Urine Color Urine Appearance (Clear) Urine pH (5.0-8.0) Ur Specific [place] (1.001-1.035) Urine Protein (Negative) Urine Glucose (UA) (Negative) Urine Ketones (Negative) Urine Blood (Negative) Urine Nitrite (Negative) Urine Bilirubin (Negative) Urine Urobilinogen (<2.0) mg/dL Ur Leukocyte Esterase (Negative) Urine RBC (0-5) /hpf Urine WBC (0-5) /hpf Ur Squamous Epith Cells (0-4) /hpf Urine Bacteria (None) /hpf Urine Mucus (None) /hpf 03/08/23 Range/Units 15:21 WBC (3.8-10.6) k/uL RBC (3.80-5.40) m/uL Hgb (11.4-16.0) gm/dL Hct (34.0-46.0) % MCV (80.0-100.0) fL MCH (25.0-35.0) pg MCHC (31.0-37.0) g/dL RDW (11.5-15.5) % Plt Count (150-450) k/uL MPV Neutrophils % % Lymphocytes % % Monocytes % % Eosinophils % % Basophils % % Neutrophils # (1.3-7.7) k/uL Lymphocytes # (1.0-4.8) k/uL Monocytes # (0-1.0) k/uL Eosinophils # (0-0.7) k/uL Basophils # (0-0.2) k/uL Sodium (137-145) mmol/L Potassium (3.5-5.1) mmol/L Chloride (98-107) mmol/L Carbon Dioxide (22-30) mmol/L Anion Gap mmol/L BUN (7-17) mg/dL Creatinine (0.52-1.04) mg/dL Est GFR (CKD-EPI)AfAm (>60 ml/min/1.73 sqM) Est GFR (CKD-EPI)NonAf (>60 ml/min/1.73 sqM) Glucose (74-99) mg/dL Plasma Lactic Acid [place] (0.7-2.0) mmol/L Calcium (8.4-10.2) mg/dL Total Bilirubin (0.2-1.3) mg/dL AST (14-36) U/L ALT (4-34) U/L Alkaline Phosphatase (38-126) U/L Total Protein (6.3-8.2) g/dL Albumin (3.5-5.0) g/dL Urine Color Light Yellow Urine Appearance Cloudy H (Clear) Urine pH 6.5 (5.0-8.0) Ur Specific [place] 1.016 (1.001-1.035) Urine Protein Negative (Negative) Urine Glucose (UA) Negative (Negative) Urine Ketones Negative (Negative) Urine Blood Negative (Negative) Urine Nitrite Positive H (Negative) Urine Bilirubin Negative (Negative) Urine Urobilinogen 6.0 (<2.0) mg/dL Ur Leukocyte Esterase Moderate H (Negative) Urine RBC 5 (0-5) /hpf Urine WBC 2 (0-5) /hpf Ur Squamous Epith Cells 16 H (0-4) /hpf Urine Bacteria Many H (None) /hpf Urine Mucus Moderate H (None) /hpf Disposition <Nuria Ludwig - Last Filed: 03/08/23 12:09> Is patient prescribed a controlled substance at d/c from ED?: No Time of Disposition: 17:42 <Papa Michaels - Last Filed: 03/08/23 17:45> Clinical Impression: Abdominal pain Disposition: HOME SELF-CARE Instructions (If sedation given, give patient instructions): Abdominal Pain (ED) Referrals: Javon Wallace MD [Primary Care Provider] - 1-2 days
[2023-03-08 12:19] VITALS: TEMP 98
[2023-03-08] MEDS ORDERED: HYDROmorphone 0.5 MG/0.5 ML SYRINGE IVP STA ×2 (13:09→16:14)
[2023-03-08] MEDS ORDERED: KETOROLAC 15 MG/ML 1 ML VIAL IVP STA (13:09)
[2023-03-08] MEDS ORDERED: SODIUM CHLORIDE 0.9% 1,000 ML IV ONE (13:09)
[2023-03-08 13:45] LABS: Basophils % (A) 0 %; Eosinophils # (A) 0.2 k/uL (0-0.7); Eosinophils % (A) 3 %; HCT 42.9 % (34.0-46.0); HGB 14.4 gm/dL (11.4-16.0); Lymphocytes % (A) 29 %; MCH 30.3 pg (25.0-35.0); MCHC 33.5 g/dL (31.0-37.0); MCV 90.4 fL (80.0-100.0); Mean Platelet Volume 6.9; Monocytes # (A) 0.4 k/uL (0-1.0); Monocytes % (A) 6 %; Neutrophils # (A) 4.2 k/uL (1.3-7.7); Neutrophils % (A) 60 %; Platelet Count 212 k/uL (150-450); RBC 4.74 m/uL (3.80-5.40); RDW 13.4 % (11.5-15.5)
[2023-03-08 13:59] LABS: ALT 17 U/L (4-34); AST 29 U/L (14-36); African American GFR (CKD) >90 (>60 ml/min/1.73 sqM); Albumin 4.1 g/dL (3.5-5.0); Alkaline Phosphatase 91 U/L (38-126); Anion Gap 10 mmol/L; Blood Urea Nitrogen 20 mg/dL (7-17); Calcium 9.5 mg/dL (8.4-10.2); Carbon Dioxide 27 mmol/L (22-30); Chloride 103 mmol/L (98-107); Glucose 91 mg/dL (74-99); Non-African American GFR(CKD) 90 (>60 ml/min/1.73 sqM); Potassium 3.7 mmol/L (3.5-5.1); Sodium 140 mmol/L (137-145); Total Bilirubin 0.8 mg/dL (0.2-1.3); Total Protein 7.6 g/dL (6.3-8.2)
[2023-03-08 15:46] LABS: Appearance,Urine Cloudy (Clear); Bacteria,Urine Many /hpf; Bilirubin,Urine Negative (Negative); Blood,Urine Negative (Negative); Color,Urine Light Yellow; Glucose,Urine (UA) Negative (Negative); Ketones,Urine Negative (Negative); Leukocyte Esterase,Urine Moderate (Negative); Mucus,Urine Moderate /hpf; Nitrite,Urine Positive (Negative); PH, Urine 6.5 (5.0-8.0); Protein,Urine Negative (Negative); RBC,Urine 5 /hpf (0-5); Specific Gravity,Urine 1.016 (1.001-1.035); Squamous Epithelial Cell,Urine 16 /hpf (0-4); WBC,Urine 2 /hpf (0-5)
[2023-03-08] MEDS ORDERED: FAMOTIDINE 20 MG/2 ML VIAL IV STA (15:50)
[2023-03-08] MEDS ORDERED: methylPREDNISolone SOD SUCCI 125 MG/2 ML VIAL IV STA (15:50)
[2023-03-08] MEDS ORDERED: diphenhydrAMINE 50 MG/ML 1 ML VIAL IVP STA (15:50)
--- NOTE | 2023-03-08 17:22 | CT ---
EXAMINATION TYPE: CT abdomen pelvis w con DATE OF EXAM: 03/08/2023 COMPARISON: 03/05/2023 INDICATION: kidney stone with increased pain DLP: 1489.6 mGycm, Automated exposure control for dose reduction was used. CONTRAST: 100ml mL of Isovue 300. Study performed without Oral Contrast TECHNIQUE: Axial images were obtained from above the diaphragm to the pubic rami in the axial plane a t 5 mm thick sections. Reconstructed images are reviewed on the computer in the coronal plane. FINDINGS: Limited CT sections are obtained the lung bases. The visualized lung bases are clear. CT ABDOMEN: Liver: Normal Spleen: Normal Pancreas: Normal Adrenal glands: The adrenal glands are normal. Gallbladder: Surgically absent Kidneys: There is a 1.7 x 0.9 cm calcification without obstruction in the mid left kidney. Punctate c alcifications may be at the mid inferior pole left kidney.. No hydronephrosis is present. No cysts are present. Aorta: Vascular calcification is within the aorta. Inferior vena cava: Normal. CT PELVIS: Loops of bowel within the abdomen and pelvis are normal. This study is a without oral contrast [facility] bowel evaluation. Appendix: Not identified. No dilated tubular structure or inflammatory changes are evident. Urinary bladder: Normal. Genitourinary structures: Uterus and ovaries are not identified. Osseous structures: No suspicious lytic or sclerotic lesions. Lumbar fixation is present L3-4 IMPRESSION: 1. Large nonobstructing left renal stone.
[2023-03-08 18:19] VITALS: BP 178/85; PULSE 65; RESP 20
== END 2023-03-08 18:02 | disposition home or self-care (01) ==
LOC: EC 11:34
DX: R10.9 Unspecified abdominal pain (principal); F32.A Depression, unspecified; F12.90 Cannabis use, unspecified, uncomplicated; Z79.899 Other long term (current) drug therapy; Z88.0 Allergy status to penicillin; Z88.5 Allergy status to narcotic agent; Z91.041 Radiographic dye allergy status; Z88.8 Allergy status to other drugs, medicaments and biological substances
CPT/HCPCS: 51798; 36415; 80053; 83605; 85025; 81001; 74177; 99284; 96374; 96375 ×4; 96376; 96361; J1200; J2930; J3490; J1885; J1170

== ENCOUNTER → 2023-05-27 | Outpatient (CLI) | payer MEDICARE ==
[2023-05-28 02:03] LABS: Basophils # (A) 0.02 X 10*3/uL (0.00-0.10); Basophils % (A) 0.3 %; Eosinophils # (A) 0.14 X 10*3/uL (0.04-0.35); Eosinophils % (A) 2.3 %; HCT 42.2 % (37.2-46.3); HGB 13.5 g/dL (12.0-15.0); Lymphocytes # (A) 1.34 X 10*3/uL (0.90-5.00); Lymphocytes % (A) 22.2 %; MCH 29.8 pg (27.0-32.0); MCV 93.2 FL (80.0-97.0); Mean Platelet Volume 9.3 FL (9.5-12.2); Monocytes # (A) 0.36 X 10*3/uL (0.20-1.00); NRBC Per 100 WBC 0 X 10*3/uL (0.00-0.01); Neutrophils # (A) 4.14 X 10*3/uL (1.80-7.70); Neutrophils % (A) 68.7 %; Platelet Count 187 X 10*3/uL (140-440); RBC 4.53 X 10*6/uL (4.10-5.20); RDW 14.2 % (11.5-14.5); WBC 6.03 X 10*3/uL (4.50-10.00)
[2023-05-28 02:28] LABS: Blood Urea Nitrogen 12.4 mg/dL (9.0-27.0); Calcium 9.8 mg/dL (8.7-10.3); Carbon Dioxide 27.9 mmol/L (21.6-31.8); Chloride 104 mmol/L (96-109); Glucose 100 mg/dL (70-110); Potassium 3.7 mmol/L (3.5-5.5); Sodium 143 mmol/L (135-145)
== END | disposition home or self-care (01) ==
LOC: LABPAT 14:58
PROVIDERS: ATTEND Urology
DX: Z01.818 Encounter for other preprocedural examination (principal); N20.0 Calculus of kidney; I51.7 Cardiomegaly; R94.31 Abnormal electrocardiogram [ECG] [EKG]
CPT/HCPCS: 36415; 80048; 85025; 86850; 86900; 86901; 87086; 93005

== ENCOUNTER 2023-06-02 06:03 | Day surgery (SDC) | payer MEDICARE ==
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
[~2023-06-02 06:03] MED LIST: LIDOCAINE 1% (10MG/ML) FOR IV START INTRADERMA PRN
[2023-06-02] MEDS: LACTATED RINGERS 1,000 ML IV ONE ×2 (06:45→09:38)
[2023-06-02] MEDS ORDERED: MIDAZOLAM 2 MG/2 ML VIAL IV PRN (07:00)
[2023-06-02] MEDS ORDERED: HYDROmorphone 0.5 MG/0.5 ML SYRINGE IVP PRN (07:00)
[2023-06-02] MEDS: DEXAMETHASONE SOD PHOSPHATE 4 MG/ML 1 ML VIAL IV ONE (07:24)
[2023-06-02] MEDS: ONDANSETRON 4 MG/2 ML VIAL IVP ONE ×2 (07:24→11:20)
[2023-06-02] MEDS ORDERED: ROCURONIUM 10 MG/ML (5 ML VIAL) IV ONE (07:31)
[2023-06-02] MEDS ORDERED: KETAMINE HCL IN 0.9 % NACL 50 MG/5 ML SYRINGE ONE (07:31)
[2023-06-02] MEDS ORDERED: PHENYLEPHRINE 10 MG/ML VIAL ONE (07:31)
[2023-06-02] MEDS ORDERED: MIDAZOLAM 2 MG/2 ML VIAL ONE (07:31)
[2023-06-02] MEDS ORDERED: SUCCINYLCHOLINE CHLORIDE 200 MG/10 ML VIAL IV ONE (07:31)
[2023-06-02] MEDS ORDERED: NEOSTIGMINE 1 MG/ML 10 ML VIAL ONE (07:31)
[2023-06-02] MEDS ORDERED: fentaNYL (PF) 50 MCG/ML 2 ML AMP ONE (07:31)
[2023-06-02] MEDS ORDERED: LIDOCAINE 1% INJ 10MG/ML (20 ML MDV) ONE (07:31)
[2023-06-02] MEDS ORDERED: GLYCOPYRROLATE 0.2 MG/ML 2 ML VIAL ONE (07:31)
[2023-06-02] MEDS ORDERED: PROPOFOL 10 MG/ML 20 ML VIAL IV ONE (07:31)
[2023-06-02] MEDS: IOPAMIDOL-370 100ML BTL MISCELLANE ONE (08:15)
--- NOTE | 2023-06-02 09:54 | P.OP ---
Date of Procedure: 06/02/23 Preoperative Diagnosis: left renal stone, large Postoperative Diagnosis: same Implants: cystoscopy, attempted percutaneous nephrostomy access (failed), left ureteroscopy with limited lithotripsy, placement of 6 x 24 double-J catheter Anesthesia: LI Surgeon: Yovanny Heath Estimated Blood Loss (ml): 50 Pathology: none sent Condition: stable Disposition: PACU Indications for Procedure: the patient is 68. She has a near 2 cm left upper pole stone and comes for percutaneous nephrostolithotomy risk complications alternatives have been discussed Description of Procedure: patient brought to the operating suite. Given a general anesthetic. Placed lithotomy position on the transport gurney. She is prepped and draped sterilely. Cystoscopy identifies the left ureteral orifice which was intubated with a 5-Faroese occluding balloon catheter passed up to the UPJ it is secured to a 16-Faroese Camacho The patient's placed in a prone position. I then attempt to do percutaneous access (will be dictated separately). An hour and a half attempt fails to intubate the kidney. She is then taken out of prone position placed lithotomy position. Cystoscopy is performed the left renal orifice is intubated and a wires passed up into the kidney. Over the wires passed 06-28-Feofjk reentry sheath. The inner sheath is removed. I passed the flexible ureteroscope up into the upper pole or the stone lay. It is quite edematous from the attempts at percutaneous access. I attempted break the stone that is seen with the laser but the edema created from this is so great that I'm unable to see the stone and bleeding events me from proceeding. I therefore terminate the procedure. An 0350 wires passed through the sheath into the kidney. Over the wires passed a 6 x 24 J catheter. The bladder strain. Impression failure to remove the stone percutaneously. The patient will be discharged home upon recovery. She'll be set up for ureteroscopy to remove the stone 2-3 weeks.
--- NOTE | 2023-06-02 09:56 | P.PCN ---
Date of Procedure: 06/02/23 Preoperative Diagnosis: left renal stone large Postoperative Diagnosis: same Procedure(s) Performed: attempted percutaneous access to left kidney Anesthesia: LI Surgeon: Yovanny Heath Indications for Procedure: large left renal stone. Description of Procedure: the patient has previously had a ureteral catheter placed after general anesthetic. She is in a prone position with care to airways and extremities. Air was injected through the ureteral catheter to outline the collecting system. There appears to be a dilated upper pole calyx where the impacted stone was identified. Several attempts to intubate that calyx have failed a. I then attempted to intubate a lower pole calyx and this fails. A total of an hour and a half has been used to intubate the kidney and I fail. Thus the percutaneous approach the kidney is terminated.
--- NOTE | 2023-06-02 10:25 | FL ---
Fluoroscopy INDICATION: Pain FINDINGS: Fluoroscopy time: 1036.2 seconds. Total dose area product (DAP) in uGy*m?, mGy*cm? (or similar): 8.95 Images obtained: 0. IMPRESSION: 1. Documentation of fluoroscopy.
--- NOTE | 2023-06-02 10:27 | FL ---
Fluoroscopy INDICATION: Pain FINDINGS: Fluoroscopy time: 1036.2 seconds. Total dose area product (DAP) in uGy*m?, mGy*cm? (or similar): 8.95 Images obtained: 13. IMPRESSION: 1. Documentation of fluoroscopy.
[2023-06-02] MEDS ORDERED: ONDANSETRON 4 MG/2 ML VIAL ONE (11:13)
[2023-06-02] MEDS ORDERED: KETOROLAC 15 MG/ML 1 ML VIAL ONE (11:17)
[2023-06-02] MEDS: KETOROLAC 15 MG/ML 1 ML VIAL IVP ONE (11:20)
[2023-06-02] MEDS ORDERED: ACETAMINOPHEN TAB 325 MG TAB PO PRN (12:49)
[2023-06-02] MEDS ORDERED: ALPRAZolam 0.25 MG TAB PO PRN (12:49)
--- NOTE | 2023-06-02 13:11 | P.PN ---
Progress Note - Text Progress Note Date: 06/02/23 The patient is having too much discomfort from the procedure and stent to go home. I will observe her here over night with ivf and pain medication.
[2023-06-02] MEDS: HYDROcodone/APAP 10-325MG 1 EACH TAB PO PRN (14:57)
[2023-06-02] MEDS: LACTATED RINGERS 1,000 ML IV SCH (15:18)
[2023-06-02] MEDS: DEXTROSE 5%-0.45% NACL 1,000 ML IV SCH (15:43)
[2023-06-02] MEDS: ONDANSETRON 4 MG/2 ML VIAL IVP PRN (19:37)
[2023-06-02] MEDS: VENLAFAXINE HCL ER 150 MG CAP PO SCH (20:24)
[2023-06-02 21:18] VITALS: RESP 16
[2023-06-03] MEDS: oxyBUTYnin chloride 5 MG TAB PO PRN (10:56)
[2023-06-03 13:01] VITALS: BP 133/76; PULSE 71; TEMP 99
[2023-06-03] MEDS: TAMSULOSIN 0.4 MG CAP.ER.24H PO STA (13:32)
[2023-06-03] MEDS: CIPROFLOXACIN HCL 500 MG TAB PO SCH (14:32)
--- NOTE | 2023-06-03 17:18 | P.DS ---
Providers Attending physician: Yovanny Larson Primary care physician: Javon Corona Riddle Hospital Course: This is a 68-year-old female that underwent an attempted left-sided percutaneous nephrolithotomy by Dr. larson. Access could not be obtained into the kidney and thus subsequently she underwent a left-sided ureteroscopy with holmium laser, limited lasering was performed due to edema. Patient was admitted to the hospital postoperatively due to pain, she initially did have some trouble voidi ng and required straight catheterization x 1, she subsequently was able to void and was discharged home. At time of discharge she was tolerating a diet, ambulating, pain was controlled. She will follow-up with Dr. larson for left- sided ureteroscopy in 2 to 3 weeks Plan - Discharge Summary Discharge Rx Participant: Yes New Discharge Prescriptions: New Tamsulosin [Flomax] 0.4 mg PO DAILY #30 cap Ketorolac [Toradol] 10 mg PO Q6HR #15 tab No Action Venlafaxine HCl ER [Effexor XR] 150 mg PO BID HYDROcodone/APAP 10-325MG [[place] 10-325] 1 tab PO Q6HR PRN PRN Reason: Pain Fruits & Veggies Supplement 1 tab PO DAILY Discharge Medication List Venlafaxine HCl ER [Effexor XR] 150 mg PO BID 03/21/22 [History] Fruits & Veggies Supplement 1 tab PO DAILY 05/28/23 [History] HYDROcodone/APAP 10-325MG [[place] 10-325] 1 tab PO Q6HR PRN 05/28/23 [History] Ketorolac [Toradol] 10 mg PO Q6HR #15 tab 06/03/23 [Rx] Tamsulosin [Flomax] 0.4 mg PO DAILY #30 cap 06/03/23 [Rx] Follow up Appointment(s)/Referral(s): Yovanny Larson MD [STAFF PHYSICIAN] - 06/07/23 8:20 am Patient Instructions/Handouts: Ketorolac (By mouth), Tamsulosin (By mouth), Kidney Stones (DC), Ureteral Stent Placement (DC), Lithotripsy (DC), Ureteroscop y (DC) Activity/Diet/Wound Care/Special Instructions: Complete Cipro(antibiotic) prescription as previously ordered. Discharge Disposition: HOME SELF-CARE
== END 2023-06-03 17:01 | disposition home or self-care (01) ==
LOC: OR 06:03 → 5NMEDONC 09:56 → OR 06-03 17:01
PROVIDERS: ATTEND Urology
DX: N20.0 Calculus of kidney (principal); M19.90 Unspecified osteoarthritis, unspecified site; Z86.718 Personal history of other venous thrombosis and embolism; Z86.73 Personal history of transient ischemic attack (TIA), and cerebral infarction without residual deficits; Z98.891 History of uterine scar from previous surgery; Z90.710 Acquired absence of both cervix and uterus; Z90.89 Acquired absence of other organs; Z88.0 Allergy status to penicillin; Z88.8 Allergy status to other drugs, medicaments and biological substances; Z91.041 Radiographic dye allergy status; Z88.5 Allergy status to narcotic agent
CPT/HCPCS: 52332; C2625; C1769 ×4; C2628; J1100; J2405 ×2; J1885; Q9967; 50432

== ENCOUNTER 2023-06-04 14:24 | Emergency (ER) | payer MEDICARE ==
[2023-06-04 14:54] VITALS: RESP 18; TEMP 98.4
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
[2023-06-04] MEDS: MORPHINE SULFATE 4 MG/ML SYRINGE IM STA (15:49)
--- NOTE | 2023-06-04 15:57 | US ---
EXAMINATION TYPE: US venous doppler duplex LE LT DATE OF EXAM: 06/04/2023 3:38 PM COMPARISON: NONE CLINICAL INDICATION: Female, 68 years old with history of Left leg pain, hx of DVTs; Hx of DVT. Patie nt has had left leg pain x 1 day. SIDE PERFORMED: Left TECHNIQUE: The lower extremity deep venous system is examined utilizing real time linear array sonog temo with graded compression, doppler sonography and color-flow sonography. VESSELS IMAGED: Common Femoral Vein Deep Femoral Vein Greater Saphenous Vein * Femoral Vein Popliteal Vein Small Saphenous Vein * Proximal Calf Veins (* superficial vessels) Left Leg: No evidence of DVT. IMPRESSION: No evidence of DVT at this time.
[2023-06-04] MEDS: ORPHENADRINE 30 MG/ML 2 ML VIAL IVP STA (17:13)
[2023-06-04] MEDS: DEXAMETHASONE SOD PHOSPHATE 10 MG/ML 1 ML VIAL IVP STA (17:13)
[2023-06-04] MEDS: ACET/COD 300 MG/30 MG STARTER PACK 6 TAB BTL PO STA (17:16)
[2023-06-04] MEDS: ORPHENADRINE 30 MG/ML 2 ML VIAL IM STA (17:16)
[2023-06-04] MEDS: DEXAMETHASONE SOD PHOSPHATE 10 MG/ML 1 ML VIAL IM STA (17:16)
[2023-06-04 17:27] VITALS: BP 132/57; PULSE 79
== END 2023-06-04 17:27 | disposition home or self-care (01) ==
LOC: EC 14:24
DX: M79.605 Pain in left leg (principal); F12.90 Cannabis use, unspecified, uncomplicated; Z88.0 Allergy status to penicillin; Z88.1 Allergy status to other antibiotic agents; Z88.8 Allergy status to other drugs, medicaments and biological substances; Z91.041 Radiographic dye allergy status
CPT/HCPCS: 93971; 99284; 96372 ×3; J2270; J1100; J2360

== ENCOUNTER → 2023-06-10 | Outpatient (CLI) | payer MEDICARE ==
[2023-06-10 15:22] LABS: Basophils # (A) 0.05 X 10*3/uL (0.00-0.10); Basophils % (A) 0.7 %; Eosinophils # (A) 0.32 X 10*3/uL (0.04-0.35); Eosinophils % (A) 4.3 %; HCT 38.7 % (37.2-46.3); HGB 12.5 g/dL (12.0-15.0); Lymphocytes # (A) 1.71 X 10*3/uL (0.90-5.00); Lymphocytes % (A) 22.7 %; MCHC 32.3 g/dL (32.0-37.0); Mean Platelet Volume 9.5 FL (9.5-12.2); Monocytes % (A) 6.6 %; NRBC Per 100 WBC 0 X 10*3/uL (0.00-0.01); Neutrophils # (A) 4.82 X 10*3/uL (1.80-7.70); Neutrophils % (A) 64.1 %; Platelet Count 273 X 10*3/uL (140-440); RBC 4.16 X 10*6/uL (4.10-5.20); RDW 13.6 % (11.5-14.5); WBC 7.52 X 10*3/uL (4.50-10.00)
[2023-06-10 15:54] LABS: BUN/Creat Ratio 15.89 Ratio (12.00-20.00); Blood Urea Nitrogen 14.3 mg/dL (9.0-27.0); Calcium 8.9 mg/dL (8.7-10.3); Carbon Dioxide 23.7 mmol/L (21.6-31.8); Chloride 102 mmol/L (96-109); Glucose 123 mg/dL (70-110); Potassium 3.7 mmol/L (3.5-5.5); Sodium 138 mmol/L (135-145)
[2023-06-10 16:17] LABS: Appearance,Urine Turbid (Clear); Bilirubin,Urine Small (Negative); Blood,Urine Large (Negative); Color,Urine Red (Yellow); Ketones,Urine Negative (Negative); Nitrite,Urine Negative (Negative); PH, Urine 5.5; Specific Gravity,Urine 1.021 (1.001-1.030); Urobilinogen,Urine 0.2 E.U./DL
[2023-06-10 17:16] LABS: Bacteria,Urine None Seen (None Seen); Calcium Oxalate Crystals,Urine Present (None Seen)
== END | disposition home or self-care (01) ==
LOC: LABPAT 11:54
PROVIDERS: ATTEND Urology
DX: Z01.812 Encounter for preprocedural laboratory examination (principal); N20.0 Calculus of kidney
CPT/HCPCS: 36415; 80048; 81001; 85025; 87086

== ENCOUNTER 2023-06-16 07:01 | Day surgery (SDC) | payer MEDICARE ==
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
[~2023-06-16 07:01] MED LIST changes: +HYDROmorphone 0.5 MG/0.5 ML SYRINGE IVP PRN; -LIDOCAINE 1% (10MG/ML) FOR IV START INTRADERMA PRN; +Pre Op ABX Message 1 EACH MISC MISCELLANE ONE
--- NOTE | 2023-06-16 07:42 | XR ---
EXAMINATION TYPE: XR KUB DATE OF EXAM: 06/16/2023 COMPARISON: None INDICATION: Preop TECHNIQUE: Single view abdomen supine view FINDINGS: There is a normal bowel gas pattern. Psoas margins are normal. No organomegaly is present. Postsurgical changes are in the left upper quadrant. Prior cholecystectomy likely is present. There i s surgery with fusion of the L3-4 level and laminectomies been performed There is a catheter in the left ureteral region. This extends the urinary bladder. There is a 1.8 cm mid left renal stone. IMPRESSION: 1. Left renal stone left ureteral stent.
[2023-06-16] MEDS ORDERED: ONDANSETRON 4 MG/2 ML VIAL ONE (08:35)
[2023-06-16] MEDS: LACTATED RINGERS 1,000 ML IV SCH (08:37)
[2023-06-16] MEDS: ONDANSETRON 4 MG/2 ML VIAL IVP ONE ×2 (08:41→11:08)
[2023-06-16] MEDS: DEXAMETHASONE SOD PHOSPHATE 4 MG/ML 1 ML VIAL IVP ONE (08:41)
[2023-06-16 09:06] VITALS: RESP 16
[2023-06-16] MEDS ORDERED: SUCCINYLCHOLINE CHLORIDE 200 MG/10 ML VIAL IV ONE (09:27)
[2023-06-16] MEDS ORDERED: LIDOCAINE 1% INJ 10MG/ML (20 ML MDV) ONE (09:27)
[2023-06-16] MEDS ORDERED: MIDAZOLAM 2 MG/2 ML VIAL ONE (09:27)
[2023-06-16] MEDS ORDERED: KETOROLAC 15 MG/ML 1 ML VIAL ONE (09:27)
[2023-06-16] MEDS ORDERED: PHENYLEPHRINE-0.9% NACL SYG 1,000 MCG/10 ML SYRINGE ONE (09:27)
[2023-06-16] MEDS ORDERED: fentaNYL (PF) 50 MCG/ML 2 ML AMP ONE (09:27)
[2023-06-16] MEDS ORDERED: PROPOFOL 10 MG/ML 20 ML VIAL IV ONE (09:27)
[2023-06-16] MEDS ORDERED: ceFAZolin 1 GM/50 ML BAG (PMX) ONE (09:27)
[2023-06-16] MEDS: SODIUM CHLORIDE 0.9% 50 ML with ceFAZolin 2,000 MG IV ONE (09:32)
[2023-06-16] MEDS: IOPAMIDOL-370 100ML BTL MISCELLANE ONE (10:04)
--- NOTE | 2023-06-16 10:42 | P.OP ---
Date of Procedure: 06/16/23 Preoperative Diagnosis: left renal stones Postoperative Diagnosis: same, left calyceal diverticulum Procedure(s) Performed: cystoscopy, removal double-J catheter left, left ureteroscopy with laser lithotripsy, replacement of double-J catheter left Anesthesia: GIAA Surgeon: Yovanny Heath Estimated Blood Loss (ml): 100 Pathology: none sent Condition: stable Disposition: PACU Indications for Procedure: the patient is 68. She has a 17 mm left upper pole stone as well as a smaller fragment in the upper collecting system. I failed percutaneous nephrostolithotomy access. She comes for ureteroscopy. Description of Procedure: patient brought to the operating suite. Given a general anesthetic. Prepped and draped sterilely. Cystoscopy Foroblique lens and put a 1-Pakistani sheath was shows a normal bladder. A double-J catheters identified. It is pulled to the urethral meatus. An 035 wires passed through the catheter into the renal pelvis. Over the wires passed 63-17-Fhexud sheath. The inner sheath is removed. I passed in the left renal pelvis and do not upper pole calyx and identify stone. It is broken into tiny fragments with the 200 laser probe. I then attempt to identify the larger stone with a multiple very tiny ostia that I'm unable to intubate with the nephroscope. Bleeding occurs makes it difficult to visualize because of that. My impression after an intraoperative nephrostogram is the stone is in a calyceal diverticulum off an upper pole calyx of. Due to edema and bleeding I elected terminate the procedure. The 035 wires passed through the scope into the kidney. Over the wires and passed a 7 x 24 double-J catheter that coils in the kidney and the bladder the bladder strain the patient is awakened and returned recovery room good condition Impression successful laser lithotripsy to his smaller left renal stone. Larger left upper pole calyceal diverticulum with stone unable to be intubated. Recommendations: I'll leave the stent in 1 week and then probably remove. Unless she is symptomatic from the stone I probably would do nothing further with that. This is been discussed with the patient
--- NOTE | 2023-06-16 10:51 | FL ---
Fluoroscopy INDICATION: Pain FINDINGS: Fluoroscopy time: 1 minute and 11 seconds. Total dose area product (DAP) in uGy*m?, mGy*cm? (or similar): 5.9193 Images obtained: 7. IMPRESSION: 1. Documentation of fluoroscopy.
[2023-06-16 11:16] VITALS: TEMP 96.8
[2023-06-16] MEDS: droPERidol 5 MG/2 ML VIAL IVP ONE (11:31)
[2023-06-16] MEDS: HYDROmorphone 0.5 MG/0.5 ML SYRINGE IVP ONE (11:32)
[2023-06-16 12:43] VITALS: BP 150/81; PULSE 64
== END 2023-06-16 12:34 | disposition home or self-care (01) ==
LOC: OR 07:01
PROVIDERS: ATTEND Urology
DX: N20.0 Calculus of kidney (principal); K57.30 Diverticulosis of large intestine without perforation or abscess without bleeding; F12.90 Cannabis use, unspecified, uncomplicated; Z86.718 Personal history of other venous thrombosis and embolism; M19.90 Unspecified osteoarthritis, unspecified site; Z90.710 Acquired absence of both cervix and uterus; Z90.49 Acquired absence of other specified parts of digestive tract; Z98.891 History of uterine scar from previous surgery; Z98.890 Other specified postprocedural states; Z79.899 Other long term (current) drug therapy; Z88.0 Allergy status to penicillin; Z88.8 Allergy status to other drugs, medicaments and biological substances
CPT/HCPCS: 74018; 52356; C2625; C1769; J2250; J0330; J1100; J2405; J0690 ×2; J2001; J3010; J1885; J2704; J1170; Q9967; J1790; J2371

== ENCOUNTER 2024-02-10 16:31 | Emergency (ER) | payer MEDICARE ==
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
--- NOTE | 2024-02-10 18:46 | XR ---
EXAMINATION TYPE: XR chest 2V DATE OF EXAM: 02/10/2024 6:39 PM COMPARISON: Chest radiographs from 04/24/2022 CLINICAL INDICATION: Female, 69 years old with history of shortness of breath; [facility] TECHNIQUE: XR chest 2V Frontal and lateral views of the chest. FINDINGS: Lungs/Pleura: There is flattening of the diaphragm with increased lucency of the lungs. No evidence o f pneumothorax, pleural effusion or focal consolidation. Pulmonary vascularity: Unremarkable. Heart/mediastinum: Cardiomediastinal silhouette is unremarkable. Musculoskeletal: No acute osseous pathology. There is fixation hardware in the lower cervical spine. Left shoulder fixation hardware appears intact. Other findings: None IMPRESSION: 1. No acute cardiopulmonary disease/process. 2. Moderate emphysema. [facility], , 02/10/2024 6:43 PM
[2024-02-10 19:18] LABS: Basophils # (A) 0.1 k/uL (0-0.2); Basophils % (A) 1 %; Eosinophils # (A) 0.1 k/uL (0-0.7); Eosinophils % (A) 1 %; HCT 42.8 % (34.0-46.0); HGB 13.9 gm/dL (11.4-16.0); Lymphocytes # (A) 1.5 k/uL (1.0-4.8); Lymphocytes % (A) 18 %; MCH 29.3 pg (25.0-35.0); MCHC 32.6 g/dL (31.0-37.0); Mean Platelet Volume 6.7; Monocytes # (A) 0.3 k/uL (0-1.0); Monocytes % (A) 4 %; Neutrophils # (A) 6.2 k/uL (1.3-7.7); Neutrophils % (A) 75 %; Platelet Count 255 k/uL (150-450); RBC 4.76 m/uL (3.80-5.40); RDW 14.2 % (11.5-15.5); WBC 8.3 k/uL (3.8-10.6)
[2024-02-10 19:29] VITALS: RESP 18
[2024-02-10 19:30] LABS: ALT 14 U/L (4-34); African American GFR (CKD) 88 (>60 ml/min/1.73 sqM); Albumin 4.4 g/dL (3.5-5.0); Anion Gap 7 mmol/L; Blood Urea Nitrogen 12 mg/dL (7-17); Calcium 9.6 mg/dL (8.4-10.2); Carbon Dioxide 23 mmol/L (22-30); Chloride 108 mmol/L (98-107); Glucose 126 mg/dL (74-99); Non-African American GFR(CKD) 76 (>60 ml/min/1.73 sqM); Sodium 138 mmol/L (137-145); Total Bilirubin 1.1 mg/dL (0.2-1.3); Total Protein 7.8 g/dL (6.3-8.2)
[2024-02-10 19:33] LABS: AST 27 U/L (14-36); Magnesium 2.2 mg/dL (1.6-2.3); Potassium 4.5 mmol/L (3.5-5.1)
[2024-02-10 19:34] LABS: Alkaline Phosphatase 84 U/L (38-126)
[2024-02-10 19:42] LABS: Prothrombin Time 11.1 sec (10.0-12.5)
[2024-02-10 19:47] LABS: Partial Thromboplastin Time 20.1 sec (22.0-30.0)
[2024-02-10] MEDS: FAMOTIDINE 20 MG/2 ML VIAL IV STA (20:30)
[2024-02-10] MEDS: diphenhydrAMINE 50 MG/ML 1 ML VIAL IVP STA (20:33)
[2024-02-10] MEDS: methylPREDNISolone SOD SUCCI 125 MG/2 ML VIAL IV STA (20:35)
--- NOTE | 2024-02-10 21:25 | CT ---
EXAMINATION TYPE: CT brain wo con CT DLP: 1179.4 mGycm, Automated exposure control for dose reduction was used. DATE OF EXAM: 02/10/2024 9:15 PM COMPARISON: None. CLINICAL INDICATION:Female, 69 years old with history of bryant, Pt to ED for HTN & dizziness that starte d today TECHNIQUE: Brain: Axial CT images of the brain were obtained with coronal and sagittal reformats created and rev iewed. Contrast used: None. Oral contrast used: None. FINDINGS: Brain: Extra-axial spaces: No abnormal extra-axial fluid collections. Ventricular system: Within normal limits Cerebral parenchyma: No acute intraparenchymal hemorrhage or mass effect. Remote bilateral cerebella r hemisphere infarcts as well as a right frontal lobe injury. Scattered hypoattenuating areas are see n within the white matter. Cerebellum: Unremarkable. Mass effect: No evidence of midline shift. Intracranial vasculature: unremarkable Soft tissues: Normal. Calvarium/osseous structures: Prior right frontal craniotomy. Paranasal sinuses and mastoid air cells: Mild scattered paranasal sinus disease. Visualized orbits: Orbital contents are intact. IMPRESSION: 1. No acute intracranial process. 2. Remote bilateral cerebellar hemisphere infarcts. 3. 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 [facility], , 02/10/2024 9:23 PM
--- NOTE | 2024-02-10 21:28 | CT ---
EXAMINATION TYPE: CT angio chest CT DLP: 990 mGycm, Automated exposure control for dose reduction was used. DATE OF EXAM: 02/10/2024 9:18 PM COMPARISON: Chest radiograph same day CLINICAL INDICATION:Female, 69 years old with history of dizzy,cp,htn; Pt to ED for HTN & dizziness t hat started today TECHNIQUE/CONTRAST: CTA scan of the thorax is performed with IV Contrast, patient injected with 100 ML mL of Isovue 370, MIP images are created and reviewed these are created on a separate workstation.. FINDINGS: Pulmonary Artery: There is no evidence for a filling defect within the pulmonary vasculature to sugge st acute pulmonary embolism. The pulmonary artery is of normal size. Lungs/Pleura: Scattered pleural-based scarring is identified throughout the lungs. No pleural effusio n or pneumothorax Airway: Large airways are patent. Heart: Heart is within normal limits for size. Vasculature: No evidence of aortic aneurysm. Mediastinum: No gross evidence of adenopathy. Musculoskeletal: No acute osseous abnormalities. Partially visualized cervical fusion hardware Soft Tissues: Unremarkable. Lower neck: No significant findings. Upper Abdomen: No significant findings. IMPRESSION: No evidence of pulmonary embolism. [facility], , 02/10/2024 9:26 PM
[2024-02-11] MEDS: LABETALOL 5 MG/ML VIAL MDV IVP STA (00:55)
[2024-02-11] MEDS: KETOROLAC 15 MG/ML 1 ML VIAL IVP STA (01:42)
[2024-02-11 01:56] VITALS: BP 174/91; PULSE 85; TEMP 98
== END 2024-02-11 01:55 | disposition home or self-care (01) ==
LOC: EC 16:31
DX: R42 Dizziness and giddiness (principal); Z88.0 Allergy status to penicillin; Z88.5 Allergy status to narcotic agent; Z88.8 Allergy status to other drugs, medicaments and biological substances; Z91.041 Radiographic dye allergy status; Z91.09 Other allergy status, other than to drugs and biological substances; Z86.73 Personal history of transient ischemic attack (TIA), and cerebral infarction without residual deficits
CPT/HCPCS: 36415; 93005; 85379; 80053; 83735; 84100; 84484 ×2; 85025; 85610; 85730; 71046; 70450; 71275; 99285; 96374; 96375 ×3; J1200; J3490; Q9967; J2919

== ENCOUNTER → 2024-06-29 | Outpatient (CLI) | payer MEDICARE ==
--- NOTE | 2024-06-29 15:13 | MM ---
Reason for Exam: Screening (asymptomatic). Patient History: Menarche at age 13. First Full-Term at age 40. Late child-bearing (after 31). Left ovary removed at age 42. Right ovary removed at age 42. Hysterectomy at age 42. Postmenopausal. Risk Values: Mai 5 year model risk: 2.4%. NCI Lifetime model risk: 7.6%. Tissue Density: There are scattered areas of fibroglandular density. Findings: Analyzed By CAD. There are tiny benign appearing round calcifications redemonstrated scattered throughout the bilateral breasts. There is no suspicious group of microcalcifications or new suspicious mass in either breast. Overall Assessment: Benign, BI-RAD 2 Management: Screening Mammogram of both breasts in 1 year. . Patient should continue monthly self-breast exams. A clinical breast exam by your physician is recommended on an annual basis. This exam should not preclude additional follow-up of suspicious palpable abnormalities. Note on Mai scores and lifetime risk: 1. A Mai score greater than 3% is considered moderate risk. If this is the case, consider specialist referral to assess eligibility for a risk reducing agent. 2. If overall lifetime risk for the development of breast cancer is 20% or higher, the patient may qualify for future screening with alternating mammogram and breast MRI. [facility], , 06/29/2024 3:10 PM. Electronically signed and approved by: Luis Jimenez M.D.
== END | disposition home or self-care (01) ==
LOC: RADMAMWWP 14:02
PROVIDERS: ATTEND Family Medicine
DX: Z12.31 Encounter for screening mammogram for malignant neoplasm of breast (principal); R92.323 Mammographic fibroglandular density, bilateral breasts; Z78.0 Asymptomatic menopausal state
CPT/HCPCS: 77063; 77067

== ENCOUNTER → 2024-08-02 | Outpatient (CLI) | payer MEDICARE ==
[2024-08-02 13:55] VITALS: BP 147/85; PULSE 89; RESP 16; TEMP 97.8; BMI 29.7
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
== END ==
LOC: BARWHC3 13:33
PROVIDERS: ATTEND Surgery Plastic and Reconstructive Surgery
DX: E66.01 Morbid (severe) obesity due to excess calories
CPT/HCPCS: 99212

== ENCOUNTER → 2024-08-18 | Outpatient (CLI) | payer MEDICARE ==
--- NOTE | 2024-08-18 11:05 | US ---
EXAMINATION TYPE: US carotid duplex BILAT DATE OF EXAM: 08/18/2024 COMPARISON: NONE CLINICAL INDICATION: Female, 69 years old with history of R55 SYNCOPE AND COLLAPSE; syncope, h/o TIA' s Additional History: .... TECHNIQUE: Grayscale, color Doppler and spectral Doppler evaluation of the bilateral carotid systems and vertebral arteries. Indirect Doppler criteria was utilized. FINDINGS: EXAM MEASUREMENTS: RIGHT: Peak Systolic Velocity (PSV) cm/sec ----- Right CCA: 58.2 ----- Right ICA: 88.9 ----- Right ECA: 65.6 ICA/CCA ratio: 1.5 RIGHT: End Diastole cm/sec ----- Right CCA: 15.2 ----- Right ICA: 19.7 ----- Right ECA: 10.7 LEFT: Peak Systolic Velocity (PSV) cm/sec ----- Left CCA: 52.5 ----- Left ICA: 92.3 ----- Left ECA: 73.5 ICA/CCA ratio: 1.7 LEFT: End Diastole cm/sec ----- Left CCA: 11.5 ----- Left ICA: 26.6 ----- Left ECA: 10.1 VERTEBRALS (direction of flow): Right Vertebral: Antegrade Left Vertebral: Antegrade Rhythm: Normal [employer]IST NOTES: Mild homogeneous plaque with no stenosis seen Color Doppler imaging shows patency with blood flow throughout the carotid artery. Spectral waveforms are within normal limits. IMPRESSION: Right: No hemodynamically significant stenosis. Left: No hemodynamically significant stenosis. Criteria for Assigning % of Stenosis / Diameter reduction (Estimation based on the indirect measurements of the internal carotid artery velocities (ICA PSV). 1. Normal (no stenosis)=ICA PSV < 180 cm/s: ratio < 2.0: ICA EDV<40 cm/s. 2. Less than 50% stenosis=ICA PSV < 180 cm/s: ratio < 2.0: ICA EDV<40 cm/s. 3. 50 to 69% stenosis=ICA PSV of 180 to 230 cm/s: ration 2.0 ? 4.0: ICA EDV 40-100 cm/s. PSV 125-180 cm/sec and ICA/CCA PSV Ratio ? 2.0 is also consistent with 50-69% stenosis 4. Greater than 70% stenosis to near occlusion= ICA PSV > 230 cm/s: ratio > 4.0: ICA EDV > 100 cm/s. 5. Near occlusion= ICA PSV velocities may be low or undetectable: variable ratio and ICA EDV. 6. Total occlusion=unable to detect flow. [facility], , 08/18/2024 11:03 AM
== END | disposition home or self-care (01) ==
LOC: RADUSWWP 10:25
PROVIDERS: ATTEND Family Medicine
DX: R55 Syncope and collapse (principal); Z86.73 Personal history of transient ischemic attack (TIA), and cerebral infarction without residual deficits
CPT/HCPCS: 93880